=== PATIENT | female | born 1965 | race Hispanic/Latino ===

== ENCOUNTER 2025-04-20 12:06 | Emergency (ER) | payer SELFPAY ==
[~2025-04-20] VITALS: Ht 152.4 cm; Wt 83.5 kg
[2025-04-20 12:43] LABS: IMMATURE GRANULOCYTE ABSOLUTE 0.02 K/uL (0-1); NUCLEATED RED BLOOD CELLS 0.0 % (0.0-0.19); PLATELET COUNT (AUTO) 204 K/uL (130-400); RED BLOOD CELL COUNT(AUTO) 4.08 MIL/uL (4.00-5.50); RED CELL DISTRIBUTION WIDTH 13.7 % (11.0-15.5); WHITE BLOOD COUNT (AUTO) 7.5 K/uL (4.8-10.8)
[2025-04-20 12:57] LABS: CREATININE 0.6 mg/dL (0.5-1.0); GLOMERULAR FILTR. RATE CALC 104.0 mL/min (>90); GLUCOSE,RANDOM 105.0 mg/dL (70-105); SODIUM SERUM 141.0 mmol/L (136-145); UREA NITROGEN, BLOOD 14.0 mg/dL (7-18)
[2025-04-20 13:01] LABS: ASPARTATE AMINOTRANSFERASE 31.0 U/L (10-37); TOTAL PROTEIN, SERUM 8.3 g/dL (6.0-8.3)
[2025-04-20 13:07] LABS: SARS-CoV-2, RNA, NAAT NEGATIVE SARS CoV-2 (NEGATIVE)
[2025-04-20 13:13] LABS: INFLUENZA TYPE A Negative For Type A (NEGATIVE); INFLUENZA TYPE B Negative For Type B (NEGATIVE)
--- NOTE | 2025-04-20 13:37 | HMCIMG ---
EXAM: CT Head Without IV contrast. CLINICAL HISTORY: persistent headacher TECHNIQUE: Axial computed tomography images of the head/brain without intravenous contrast. COMPARISON: None provided. FINDINGS: BRAIN: Tiny calcification foci in the cortical aspect of the left high frontal lobe region; further evaluation may be considered if clinically indicated. Partial empty sella. No acute hemorrhage. No mass lesion. No midline shift or extra-axial collections. VENTRICLES: No hydrocephalus. ORBITS: Unremarkable. SINUSES AND MASTOIDS: The paranasal sinuses and mastoid air cells are clear. BONES: No fracture. SOFT TISSUES: Unremarkable.IMPRESSION: 1. No acute intracranial findings. /[place]
[2025-04-20] MEDS ORDERED: FLUT16H NS (13:49)
[2025-04-20] MEDS ORDERED: KETO10TA2 PO (13:49)
--- NOTE | 2025-04-20 13:51 | ERN ---
General Chief Complaint: Headache Stated Complaint: HEADACHE Time Seen by MD: 12:11 Time Seen by Midlevel: 12:11 Source: patient History of Present Illness Initial Comments Patient is a 59-year-old female with no significant past medical history presenting to the emergency department with multiple complaints. She reports a frontal headache ongoing for the last three days. She reports chills at home but has been unable to check her temperature due to not having a thermometer. Today she had one episode of vomiting which concerned her so she decided to report to the ER for further evaluation. Allergies: Coded Allergies: amoxicillin (Unverified Allergy, Unknown, 04/20/25) Past Medical History Past Medical History: Hypothyroid Past Surgical History: ROS Dictation CONSTITUTIONAL: Negative except for HPI HEAD/FACE: Negative except for HPI EENT: Negative except for HPI RESPIRATORY: Negative except for HPI GASTROINTESTINAL/ABDOMINAL: Negative except for HPI GENITOURINARY: Negative except for HPI MUSCULOSKELETAL: Negative except for HPI INTEGUMENTARY: Negative except for HPI NEUROLOGICAL/PSYCH: Negative except for HPI HEMATOLOGIC/LYMPHATIC: Negative except for HPI All Systems Negative, Except as noted above. 13 point review of systems assessed and all negative except for above. Physical Exam Physical Exam Dictation Vital Signs reviewed General Appearance: Alert, oriented x 3, no acute distress, well developed, nourished. Head and Face: non-traumatic. Eyes: PERRL, pink conjunctivas, eyelid no trauma, anterior chamber with arcus senilis. Ears: Pinnas intact and no signs of trauma or erythema ear canals clear and no discharge TM no erythema Nose: No discharge, no bleeding. Oropharynx: Mouth normal, tongue pink, pharynx clear,no erythema, tonsils no exudates, no abscesses noted, mucous membrane moist Neck: Supple, non-tender, no thyromegaly, no masses, no JVD, no bruits Breast:Deferred Chest:No tenderness, no crepitus, no paradoxical movement, no retractions Lungs:Clear, well-ventilated, symmetric, no rales, no wheezing, no rhonchi, no stridor, good breath sounds bilaterally Heart: Regular rate, regular rhythm, no murmur, no gallops Vascular: no peripheral edema, Abdomen: Soft, positive bowel sounds, nondistended, no guarding, nontender, no rebound, no masses no hepatomegaly, no splenomegaly, no Delgado's sign, no hernias. Rectal: Deferred Genital: Deferred Neurological: Normal speech, motor function intact, sensory function intact Musculoskeletal: Neck nontender, full range of motion, back nontender, full range of motion, Extremities: nontender, full range of motion Skin: Color pink, dry, no turgor, no rash, no lacerations, no abrasions, no contusions. Lymphatic: Deferred Results Laboratory and Microbiology Lab and Micro Result Laboratory Tests Test 04/20/25 12:40 04/20/25 12:46 White Blood Count 7.5 K/uL (4.8-10.8) Red Blood Count 4.08 MIL/uL (4.00-5.50) Hemoglobin 13.0 g/dL (12.0-16.0) Hematocrit 39.3 % (36-48) Mean Corpuscular Volume 96.3 fL (79-99) Mean Corpuscular Hemoglobin 31.9 pg (27.0-33.0) Mean Corpuscular Hemoglobin Concent 33.1 g/dL (32.0-36.0) Red Cell Distribution Width 13.7 % (11.0-15.5) Platelet Count 204 K/uL (130-400) Mean Platelet Volume 9.4 fL (7.5-10.5) Immature Granulocyte % (Auto) 0.3 % (0-1) Neutrophils (%) (Auto) 54.7 % (40.0-77.0) Lymphocytes (%) (Auto) 33.5 % (21.0-51.0) Monocytes (%) (Auto) 11.0 % (3.0-13.0) Eosinophils (%) (Auto) 0.0 % (0.0-8.0) Basophils (%) (Auto) 0.5 % (0.0-5.0) Neutrophils # (Auto) 4.1 K/uL (1.8-7.7) Lymphocytes # (Auto) 2.5 K/uL (1.0-4.8) Monocytes # (Auto) 0.8 K/uL (0.1-1.0) Eosinophils # (Auto) 0.00 K/uL (0.00-0.70) Basophils # (Auto) 0.04 K/uL (0.00-0.20) Absolute Immature Granulocyte (auto 0.02 K/uL (0-1) Nucleated Red Blood Cells 0.0 % (0.0-0.19) Sodium Level 141 mmol/L (136-145) Potassium Level 4.0 mmol/L (3.5-5.1) Chloride Level 103 mmol/L (101-111) Carbon Dioxide Level 27 mmol/L (21-32) Blood Urea Nitrogen 14 mg/dL (7-18) Creatinine 0.6 mg/dL (0.5-1.0) Glomerular Filtration Rate Calc 104 mL/min (>90) Random Glucose 105 mg/dL (70-105) Total Calcium 9.3 mg/dL (8.5-10.1) Total Bilirubin 0.8 mg/dL (0.2-1.0) Aspartate Amino Transf (AST/SGOT) 31 U/L (10-37) Alanine Aminotransferase (ALT/SGPT) 37 U/L (12-78) Alkaline Phosphatase 101 U/L (50-136) Total Protein 8.3 g/dL (6.0-8.3) Albumin 3.8 g/dL (3.5-5.0) Lipase 39 U/L (16-77) Influenza Type A Antigen Negative For Type A Influenza Type B Antigen Negative For Type B SARS-CoV-2, RNA, NAAT NEGATIVE SARS CoV-2 Labs Reviewed?: Yes MDM MDM: Differential diagnosis: Dehydration, upper respiratory infection, electrolyte abnormality, intracranial bleed, There are no social concerns with this patient. Prescription drug management Prescriptions will include: Toradol Medical management and examination interpretation discussions were had by me with other qualified healthcare professionals as indicated for the patient's care. ED Course Orders Procedure Category Date Status Time Cbc With Differential LAB 04/20/25 Complete 12:18 Comprehensive LAB 04/20/25 Complete Metabolic Panel 12:18 Lipase LAB 04/20/25 Complete 12:18 Ct Head/Brain W/O CT 04/20/25 Resulted Contrast 12:18 Covid Rna Naat LAB 04/20/25 Complete 12:18 Influenza Type A & B, LAB 04/20/25 Complete Rapid 12:18 Vital Signs Date Time Temp Pulse Resp B/P (MAP) Pulse Ox O2 Delivery O2 Flow Rate FiO2 04/20/25 13:05 98.1 98 18 133/91 98 Room Air* 0 21 04/20/25 12:08 98.1 98 18 133/91 98 Room Air 0 DX & DISP Disposition: Discharge Departure Impression: Primary Impression: Sinus pressure Additional Impressions: Frontal headache, Tension headache Condition: Stable Scripts Fluticasone Propionate (Flonase Nasal Lester) 50 Mcg/Actuation Lester 2 SPRAY NS DAILY, #16 GM 0 Refills Prov: MEME DELEON A PAC 04/20/25 Ketorolac Tromethamine (Ketorolac Tromethamine) 10 Mg Tablet 1 TAB PO BID for pain for 5 Days, #10 TAB 0 Refills Prov: MEME DELEON A PAC 04/20/25 Additional Instructions: You were evaluated in the emergency department today for a frontal headache that has been ongoing for the past several days, along with one episode of vomiting. Your evaluation was very reassuring and showed no signs of serious illness or infection. CBC (complete blood count): Normal, with no evidence of infection or anemia. Comprehensive Metabolic Panel: Normal electrolytes, kidney function is normal, your liver functions are normal, normal bilirubin. Lipase was normal which rules out pancreatitis. You tested negative for flu a, flu B, and COVID-19. A CT scan of the head was performed which was normal and shows no signs of bleeding, stroke, or a mass. Based on your symptoms and results, your headache appears most consistent with sinus pressure or tension type headache, rather than a neurological or infectious cause. I will give you a prescription for fluticasone nasal spray once daily in each nostril to help relieve sinus pressure. You may take Toradol and Tylenol as needed for headache. Stay well hydrated and rest. You will need to follow up with your primary care doctor for further evaluation. Hoy lo evaluaron en urgencias por un dolor de shoaib frontal persistente dinorah los ltimos sanchez, junto con un episodio de vmitos. Horner evaluacin mostr signos de enfermedad grave ni infeccin. Hemograma completo: Normal, sin evidencia de infeccin ni anemia. Panel metablico completo: Electrolitos normales, funcin renal normal, funcin heptica normal, bilirrubina normal. La lipasa fue normal, lo que descarta pancreatitis. Barak pruebas de gripe A, gripe B y COVID-19 dieron negativo. Se le realiz elton tomografa computarizada de shoaib, que fue normal y no mostr signos de sangrado, accidente cerebrovascular ni elton masa. Segn barak sntomas y resultados, horner dolor de shoaib parece ser ms consistente con presin sinusal o cefalea tensional, ms que con elton causa neurolgica o infecciosa. Le recetar un aerosol nasal de fluticasona elton vez al da en cada fosa nasal para ayudar a aliviar la presin sinusal. Puede vic Toradol y Tylenol segn sea necesario para el dolor de shoiab Mantngase justin hidratado y descanse. Ser necesario que consulte con horner mdico de atencin primaria para elton evaluacin ms detallada. Time of Disposition: 13:46 I have reviewed the case, and I agree with, Diagnosis and Plan I performed the substantive portion of the visit. I have reviewed and personally made and approve the management plan that is documented in the note by myself or the TRAN. I acknowledge for responsibility for the patient's management plan. MEME DELEON PAC Apr 20, 2025 13:51
[2025-04-20 15:13] VITALS: BP 121/76; PULSE 76; RESP 12; TEMP 97.4; O2SAT 0
== END 2025-04-20 15:21 | disposition home or self-care (01) ==
LOC: EDH 12:06
DX: G44.209 Tension-type headache, unspecified, not intractable (principal); E03.9 Hypothyroidism, unspecified; Z20.822 Contact with and (suspected) exposure to COVID-19; Z88.0 Allergy status to penicillin
CPT/HCPCS: 99285; 70450; 87635; 80053; 83690; 85025; 87804 ×2; 36415; 96372; J1885